=== PATIENT | male | born 1950 | race Native Hawaiian/Other Pacific Islander ===

== ENCOUNTER 2021-07-25 13:50 | Inpatient (IN) | payer OTHER ==
[~2021-07-25] VITALS: Ht 188 cm; Wt 108.1 kg
[2021-07-25] VITALS (9 sets, daily range): BP systolic 138–212; BP diastolic 68–89; TEMP 97.9–98.2; Ht 188 cm; Wt 108.1 kg
[2021-07-25 14:28] LABS: PLATELET COUNT 267 K/uL (142-355)
[2021-07-25 14:30] LABS: POTASSIUM 4.5 mmol/L (3.6-5.2)
[2021-07-26] VITALS (7 sets, daily range): BP systolic 140–208; BP diastolic 74–99; TEMP 98.1–99.8
[2021-07-26 05:34] LABS: PLATELET COUNT 246 K/uL (142-355)
[2021-07-26 05:53] LABS: POTASSIUM 4.2 mmol/L (3.6-5.2)
[2021-07-26] MEDS ORDERED: TOUJEO SOL300 UNIT/M SC (09:20)
[2021-07-26] MEDS ORDERED: TRULICITY1.5 MG/0.5 SC (09:22)
[2021-07-26] MEDS ORDERED: CARV6.25 PO (09:23)
[2021-07-26] MEDS ORDERED: HYDR25TA60 PO (09:24)
[2021-07-26] MEDS ORDERED: SPIRONOLACT25 MG PO (09:24)
[2021-07-26] MEDS ORDERED: ZESTRIL40 MG PO (09:25)
[2021-07-26] MEDS ORDERED: TAMSULOSIN0.4 MG PO (09:25)
[2021-07-26] MEDS ORDERED: RANO500T PO (09:26)
[2021-07-26] MEDS ORDERED: CRESTOR20 MG PO (09:27)
[2021-07-26] MEDS ORDERED: PANTOPRAZOLE SO40 M2 PO (09:28)
[2021-07-26] MEDS ORDERED: CLOP75TA2 PO (09:28)
[2021-07-26] MEDS ORDERED: ASPIR-LOW81 MG PO (09:29)
[2021-07-26] MEDS ORDERED: HUMALOG KW100 UNIT/M SC (09:30)
[2021-07-27 03:55] VITALS: BP 97/61; TEMP 100.3
[2021-07-27 07:46] LABS: PLATELET COUNT 210 K/uL (142-355)
[2021-07-27 08:00] VITALS: BP 152/76; TEMP 98.6
[2021-07-27 12:00] VITALS: BP 127/57; TEMP 97.6
[2021-07-27 16:00] VITALS: BP 127/71; TEMP 98.7
[2021-07-27 20:02] VITALS: BP 138/77; TEMP 98.2
[2021-07-28 00:06] VITALS: BP 136/75; TEMP 98.6
[2021-07-28 04:28] VITALS: BP 106/55; TEMP 98.9
[2021-07-28 04:55] LABS: PLATELET COUNT 205 K/uL (142-355)
[2021-07-28 05:17] LABS: POTASSIUM 3.9 mmol/L (3.6-5.2)
[2021-07-28 08:00] VITALS: BP 110/57; TEMP 99
[2021-07-28 12:00] VITALS: BP 126/66; TEMP 98.5
[2021-07-28 16:00] VITALS: BP 139/72; TEMP 98.8
[2021-07-28 20:00] VITALS: BP 173/90; TEMP 98.7
[2021-07-29] VITALS: BP 188/82; TEMP 98.1
[2021-07-29 04:00] VITALS: BP 133/73; TEMP 97.5
[2021-07-29 05:39] LABS: PLATELET COUNT 265 K/uL (142-355)
[2021-07-29 05:55] LABS: POTASSIUM 4.3 mmol/L (3.6-5.2)
[2021-07-29 08:00] VITALS: BP 109/61; TEMP 97.5
[2021-07-29 12:00] VITALS: BP 112/68; TEMP 98.3
[2021-07-29 16:00] VITALS: BP 147/74; TEMP 98.3
[2021-07-29 20:00] VITALS: BP 130/72; TEMP 98.6
[2021-07-30] VITALS: BP 116/70; TEMP 97
[2021-07-30 04:00] VITALS: BP 110/57; TEMP 97.5
[2021-07-30 08:00] VITALS: BP 143/75; TEMP 97.8
[2021-07-30 10:30] LABS: PLATELET COUNT 270 K/uL (142-355)
[2021-07-30 10:47] LABS: POTASSIUM 4.5 mmol/L (3.6-5.2)
[2021-07-30 12:00] VITALS: BP 128/63; TEMP 97.7
[2021-07-30 16:00] VITALS: BP 133/70; TEMP 98.2
[2021-07-30 19:45] VITALS: BP 129/69; TEMP 98.5
[2021-07-31] VITALS (7 sets, daily range): BP systolic 127–150; BP diastolic 63–71; TEMP 97.5–98.6
[2021-08-01 04:04] VITALS: BP 137/72; TEMP 97.6
[2021-08-01 08:00] VITALS: BP 132/61; TEMP 98.3
[2021-08-01 12:00] VITALS: BP 146/70; TEMP 98.4
[2021-08-01 16:00] VITALS: BP 142/68; TEMP 98.4
[2021-08-01 19:45] VITALS: BP 158/76; TEMP 98.7
[2021-08-02] VITALS (7 sets, daily range): BP systolic 130–153; BP diastolic 64–77; TEMP 97.5–98.4
[2021-08-02 05:34] LABS: PLATELET COUNT 321 K/uL (142-355)
[2021-08-02 05:36] LABS: POTASSIUM 3.9 mmol/L (3.6-5.2)
[2021-08-03] VITALS: BP 164/82; TEMP 98.2
[2021-08-03 04:00] VITALS: BP 101/42; TEMP 98.2
[2021-08-03 08:00] VITALS: BP 155/70; TEMP 98.2
[2021-08-03 09:28] LABS: POTASSIUM 4.4 mmol/L (3.6-5.2)
[2021-08-03 12:00] VITALS: BP 136/66; TEMP 98.4
[2021-08-03 16:00] VITALS: BP 128/74; TEMP 97.9
[2021-08-03 20:00] VITALS: BP 165/89; TEMP 98.4
[2021-08-04] VITALS: BP 137/62; TEMP 98.3
[2021-08-04 04:00] VITALS: BP 144/77; TEMP 97.9
[2021-08-04 08:00] VITALS: BP 138/68; TEMP 98
== END 2021-08-04 16:45 | disposition home health service (06) | DRG 728 ==
LOC: ED 13:50 → MED/SURG 17:20
PROVIDERS: Emergency Medicine; Internal Medicine; ADMIT Family Medicine; ATTEND Internal Medicine Endocrinology, Diabetes & Metabolism
PROC: 05HF33Z Insertion of Infusion Device into Left Cephalic Vein, Percutaneous Approach (ICD-10-PCS; principal; 2021-08-04)
DX: N45.1 Epididymitis (principal); N30.00 Acute cystitis without hematuria; N17.8 Other acute kidney failure; N40.0 Benign prostatic hyperplasia without lower urinary tract symptoms; K21.9 Gastro-esophageal reflux disease without esophagitis; I25.10 Atherosclerotic heart disease of native coronary artery without angina pectoris; E78.49 Other hyperlipidemia; E11.9 Type 2 diabetes mellitus without complications; I10 Essential (primary) hypertension; Z95.1 Presence of aortocoronary bypass graft; Z85.46 Personal history of malignant neoplasm of prostate; B96.20 Unspecified Escherichia coli [E. coli] as the cause of diseases classified elsewhere
CPT/HCPCS: 36415; 80048; 80053; 81000; 85027; 87077; 87086; 87088; 87186; 87635; 96360; 96365; 96375; 99284; C1751; J0360; J0696; J0744; J1170; J1650; J1815; J1956; J2270; J2405; J2543; U0003